=== PATIENT | female | born 1980 | race Caucasian/White ===

== ENCOUNTER → 2019-07-25 | Emergency (ER) | payer BC, OTHER ==
[~2019-07-25] VITALS: Ht 172.7 cm; Wt 86.2 kg
[~2019-07-25] MED LIST: IOHEXOL 300 MG/ML 100ML BOTTLE IJ ONE
[2019-07-25 19:48] LABS: Urine Bacteria NONE SEEN /hpf (None Seen); Urine Blood Negative /uL (Negative); Urine Specific Gravity 1.016 (1.001-1.035); Urine WBC 3 /hpf (0 - 5)
[2019-07-25 20:29] LABS: INR 1.02 (0.9-1.15); Partial Thromboplastin Time 21.3 sec (23.64-32.05)
[2019-07-25 20:32] LABS: Albumin 3.6 g/dL (3.4-5.0); BUN/Creatinine Ratio 15.2; Calcium 8.3 mg/dL (8.5-10.1); Magnesium 1.9 mg/dL (1.6-2.6); Potassium 3.9 mmol/L (3.5-5.1)
[2019-07-25 20:33] LABS: Basophils # (auto) 0.1 uL; Basophils % (auto) 0.4 % (0.0-2.0); Eosinophils # (auto) 0 uL; Eosinophils % (auto) 0.2 % (0.0-7.0); Hematocrit 22.5 % (36.0-46.0); Lymphocytes # (auto) 3.7 uL; Lymphocytes % (auto) 26.5 % (10.0-50.0); Mean Corpuscular Hemoglobin 14.6 pg (28.0-32.0); Mean Corpuscular Hgb Conc. 27.3 g/dL (32.0-36.0); Mean Corpuscular Volume 53.6 fL (80.0-100.0); Monocytes # (auto) 1.4 uL; Monocytes % (auto) 10.1 % (0.0-12.0); Neutrophils # (auto) 8.8 uL; Neutrophils % (auto) 62.8 % (37.0-80.0); Nucleated Red Blood Cells % 0.3 %; Platelet Count (auto) 541 10^3/uL (140-450); Red Cell Distribution Width 19.3 % (11.8-14.3)
[2019-07-25 20:34] LABS: Bilirubin, Total 0.4 mg/dL (0.2-1.0); Total Protein 7.2 g/dL (6.4-8.2)
[2019-07-25 20:35] LABS: Hemoglobin 6.1 g/dL (12.2-16.2)
[2019-07-25 22:39] VITALS: BP 104/65
[2019-07-25 22:54] VITALS: BP 107/54
[2019-07-26] VITALS (7 sets, daily range): BP systolic 103–115; BP diastolic 56–65
[2019-07-26 07:11] LABS: Hemoglobin 8.2 g/dL (12.2-16.2)
[2019-07-26 07:15] LABS: Hematocrit 27.2 % (36.0-46.0)
== END | disposition home or self-care (01) ==
LOC: ER 18:36
DX: N39.0 Urinary tract infection, site not specified (principal); E05.80 Other thyrotoxicosis without thyrotoxic crisis or storm; D50.9 Iron deficiency anemia, unspecified; Z90.89 Acquired absence of other organs; Z88.0 Allergy status to penicillin
CPT/HCPCS: 36415; 36430; 74177; 80053; 81001; 81025; 82150; 83690; 83735; 84443; 85014; 85018; 85025; 85610; 85730; 86850; 86900; 86901; 86920; 99285; J7030; P9016; Q9967